=== PATIENT | male | born 1970 | race Hispanic/Latino ===

== ENCOUNTER 2016-12-25 06:15 | Day surgery (SDC) | payer MEDICARE ==
[2016-12-25] MEDS ORDERED: WATER FOR IRRIG STERILE IR ONE ×2 (07:37→08:39)
--- NOTE | 2016-12-25 07:37 | Anesthesia Consultation ---
Anesthesia Consult and Med Hx Date of service: 12/25/16 - Airway Anesthetic Teeth Evaluation: Good, Dentures (upper and lower) ROM Head & Neck: Adequate Mental/Hyoid Distance: Adequate Mallampati Class: Class II Intubation Access Assessment: Probably Good - Pulmonary Exam CTA: Yes - Cardiac Exam Cardiac Exam: RRR - Pre-Operative Health Status ASA Pre-Surgery Classification: ASA3 Proposed Anesthetic Plan: MAC - Pulmonary Hx Smoking: Yes (CIGARETTES 1 PPD X 25 YRS, QUIT 11/2014) Hx Asthma: Yes (SEASONAL) Hx Sleep Apnea: Yes (CPAP) - Cardiovascular System Hx Hypertension: Yes (FOR 4 YRS) Hx Peripheral Vascular Disease: Yes (DX: IN 2016) - Gastrointestinal Hx Gastroesophageal Reflux Disease: No - Endocrine Hx Insulin Dependent Diabetes: Yes - Hematic Hx Anemia: No - Other Systems Hx Cancer: No Hx Obesity: Yes
--- NOTE | 2016-12-25 07:38 | Anesthesia Day of Surgery ---
Anesthesia Day of Surgery - Day of Surgery Patient Examined: Yes Patient H&P Reviewed: Yes Patient is NPO: Yes
[2016-12-25] MEDS ORDERED: DIPRIVAN 10 MG/ML IV ONE ×2 (08:12)
--- NOTE | 2016-12-25 08:12 | Discharge Summary ---
Providers - Providers Date of discharge: 12/25/16 Attending physician: ARTHUR ANDERSON Hospitalization Condition: Good Procedures: egd Disposition: - TO HOME OR SELFCARE Core Measure Documentation - Palliative Care Palliative Care/ Comfort Measures: Not Applicable - Core Measures Any of the following diagnoses?: none Exam - Physical Exam Narrative exam: unchanged from pre-op Plan Activity: no restrictions Diet: clear liquids
--- NOTE | 2016-12-25 08:13 | Operative Report ---
Operative Report Operative Report: OPERATIVE REPORT - EGD DATE 12/25/16 SURGERY: Upper endoscopy. SURGEON: Preston Paulino M.D. MECHANICAL ENGINEERING TECHNOLOGIST: n/a PRE OP DX:dyspepsia POST OP DX:small hiatal hernia TYPE OF ANESTHESIA: MAC. ESTIMATED BLOOD LOSS: None. COMPLICATIONS: None. SPECIMENS REMOVED: None. FINDINGS: 1. Small hiatal hernia. 2. Otherwise, normal esophagus, stomach and first portion of duodenum. INDICATIONS:INDICATION FOR PROCEDURE: Patient is a 46-year-old male with a long history of morbid obesity. he is planned to have a weight loss procedure and is here for preoperative planning EGD. PROCEDURE DETAILS: After consent was reviewed, patient was taken back to the operating room where patient was placed in the left lateral decubitus position and a bite block was placed in the mouth. After a time-out was called, MAC anesthesia was initiated. I then passed the endoscope into her oropharynx, into her esophagus, visualized the entire esophagus, which was all within normal limits. I then visualized the stomach and the first portion of the duodenum and there were no abnormalities I could clearly visualize. I then retroflexed the scope in the stomach and visualized the hiatus and I could see a small hiatal hernia. I then desufflated the stomach and removed the endoscope. Patient tolerated procedure well and was transferred to recovery room in good and stable condition.
[2016-12-25 08:41] VITALS: BP 100/57
--- NOTE | 2016-12-25 10:38 | Post Anesthesia Evaluation ---
- Post Anesthesia Evaluation Patient Participated: Yes Airway Patent: Yes Stable Respiratory Function: Yes Nausea/Vomiting: No Temp > 96.8F: Yes Pain Manageable: Yes Adequeate Hydration: Yes Anesthesia Complications: No Block Receding Appropriately: Not Applicable Patient on Ventilator: No
[2016-12-25] MEDS ORDERED: NACL 0.9% 1000 ML 1,000 ML IV SCH (11:00)
== END 2016-12-25 06:16 | disposition home or self-care (01) ==
LOC: GIO 06:15
PROVIDERS: ATTEND Surgery
DX: K44.9 Diaphragmatic hernia without obstruction or gangrene (principal); I10 Essential (primary) hypertension; E11.9 Type 2 diabetes mellitus without complications; E66.01 Morbid (severe) obesity due to excess calories; Z68.43 Body mass index [BMI] 50.0-59.9, adult; Z86.79 Personal history of other diseases of the circulatory system; Z87.891 Personal history of nicotine dependence; Z88.0 Allergy status to penicillin; Z88.5 Allergy status to narcotic agent; Z88.1 Allergy status to other antibiotic agents; Z79.899 Other long term (current) drug therapy; Z79.4 Long term (current) use of insulin
CPT/HCPCS: 43235; J2704; J7030